=== PATIENT | male | born 1985 | race Caucasian/White ===

== ENCOUNTER 2024-06-09 04:37 | Emergency (ER) | payer OTHER ==
[~2024-06-09] VITALS: Ht 180.3 cm; Wt 103.4 kg
[2024-06-09] MEDS ORDERED: CEPACOL SORE T1 EAC5 MM (06:14)
[2024-06-09] MEDS ORDERED: MENTHOL/CETYLPYRD CL 1 LOZ LOZENGE MM ONE (06:15)
[2024-06-09 06:26] VITALS: BP 97/88
== END 2024-06-09 06:27 | disposition other institution, planned readmission (95) ==
LOC: ED 04:37
DX: J02.8 Acute pharyngitis due to other specified organisms (principal); B97.89 Other viral agents as the cause of diseases classified elsewhere; Z87.891 Personal history of nicotine dependence
CPT/HCPCS: 87651; 99283